=== PATIENT | female | born 1970 | race Caucasian/White ===

== ENCOUNTER 2024-12-03 05:38 | Emergency (ER) | payer OTHER, SELFPAY ==
[2024-12-03] VITALS (14 sets, daily range): BP systolic 130–158; BP diastolic 72–89; PULSE 77–90; TEMP 37; O2SAT 88–96; BMI 40.2
--- NOTE | 2024-12-03 05:57 | ECG_ITS ---
The [facility] Test Date: 2024-12-03 Pat Name: YVONNE KELLER Department: Room: - Gender: Female Call Specialist: : 1970 Requested By: NADIRA PEREZ Order Number: [id number] Reading MD: SONIA MUNGUIA Measurements Intervals [place] Rate: 78 P: 50 MN: 162 QRS: 5 QRSD: 92 T: 64 QT: 384 QTc: 417 Interpretive Statements 1100 Sinus rhythm 5211 Minimal voltage criteria for LVH, may be normal variant 9130 borderline ECG No previous ECG available for comparison Electronically Signed On 12-03-2024 16:59:39 EST by SONIA MUNGUIA
--- NOTE | 2024-12-03 06:03 | CT_ITS ---
The [address] [address] Patient Name: YVONNE KELLER MRN: [id number] date: 1970 Sex: F Assigned Patient Location: ER [facility] Accession/Order Number: [id number] Exam Date: 12/03/2024 06:35 Report Date: 12/03/2024 06:53 At the request of: WILMAN SOW Procedure: CT head/brain wo con EXAM: CT head/brain wo con HISTORY: Vertigo COMPARISON: None. TECHNIQUE: Axial soft tissue and bone windows through the calvarium with coronal and sagittal reformats. CT dose reduction technique was used including Automated Exposure Control. 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 Minimal left maxillary sinus mucosal thickening. The remainder of the paranasal sinuses and mastoid air cells are well aerated. No air-fluid levels. No extra-axial fluid collection. No intra-axial or extra-axial bleed. No mass effect or midline shift. The piña-white matter differentiation is preserved. The brain parenchymal volume is age appropriate. The ventricles are nondilated. The basal cisterns are patent. The craniovertebral junction is unremarkable. CT/CT head/brain wo con IMPRESSION: 1. No acute intracranial abnormality. Electronically authenticated by: ESTEBAN DAVILA Date: 12/03/2024 06:53
--- NOTE | 2024-12-03 06:07 | ED.GENADUL1 ---
HPI HPI - General Adult General Chief complaint: Dizziness Stated complaint: DIZZINESS Time Seen by Provider: 12/03/24 05:58 Source: patient Mode of arrival: walk-in Limitations: no limitations History of Present Illness HPI narrative: 54-year-old female presents for a spinning sensation. It has been intermittent and it started yesterday. She states she is getting over an upper respiratory infection. She states those symptoms are better but yesterday she developed a spinning sensation particularly when she stands up or moves around. She has not had a fever or vomiting and does not complain of ear pain. About 15 years ago she was treated for vertigo. Related Data Allergies Allergy/AdvReac Type Severity Reaction Status Date / Time Sulfa (Sulfonamide AdvReac Mild Vomiting Verified 12/03/24 05:42 Antibiotics) Opioid HPI Opioid Management Most Recent Opioid Data: No Data to Display Review of Systems ROS Narrative A ten point review of systems is negative except as noted above. PFSH PFSH Social History Little interest or pleasure in doing things: not at all Feeling down, depressed, or hopeless: not at all Exam Narrative Exam Narrative: Nurses note and vital signs reviewed and patient is not hypoxic. General: The patient appears well and in no apparent distress. Patient is resting comfortably on cart. Skin: Warm, dry, no pallor noted. There is no rash noted. Head: Normocephalic, atraumatic Eye: Normal conjunctiva, no drainage, EOMI. PERRL Ears, Nose, Mouth, and Throat: oral mucosa is moist. Nares patent. TMs and external canals are normal. No erythema or excess cerumen Cardiovascular: Regular Rate and Rhythm Respiratory: Patient is in no distress, no accessory muscle use, lungs are clear to auscultation, no wheezing, rales or rhonchi Back: non-tender GI: Soft and nontender Musculoskeletal: The patient has no evidence of calf tenderness, no pitting edema, symmetrical pulses noted bilaterally Neurological: A&O, normal speech; upper and lower extremity strength intact Psychiatric: Cooperative Constitutional Vital Signs, click to edit/add: Last Vital Signs Temp 98.6 F 12/03/24 05:42 Pulse 85 12/03/24 05:42 Resp 18 12/03/24 05:42 BP 158/75 H 12/03/24 05:42 Pulse Ox 96 12/03/24 05:42 O2 Del Method Room Air 12/03/24 05:42 Course Vital Signs Vital signs: Vital Signs Temperature 98.6 F 12/03/24 05:42 Pulse Rate 85 12/03/24 05:42 Respiratory Rate 18 12/03/24 05:42 Blood Pressure 158/75 H 12/03/24 05:42 Pulse Oximetry 96 12/03/24 05:42 Oxygen Delivery Method Room Air 12/03/24 05:42 Temperature 98.6 F 12/03/24 05:42 Pulse Rate 85 12/03/24 05:42 Respiratory Rate 18 12/03/24 05:42 Blood Pressure 158/75 H 12/03/24 05:42 Pulse Oximetry 96 12/03/24 05:42 Oxygen Delivery Method Room Air 12/03/24 05:42 Medical Decision Making MDM Narrative Medical decision making narrative: Tests are ordered and the patient is signed out to Dr. Smyth at change of shift. Differential Diagnosis Differential Diagnosis: Vertigo, dehydration, anemia, dysrhythmia Lab Data Lab results reviewed: Yes I reviewed the patient's lab results ECG Data Attestation: I personally reviewed and interpreted this ECG as follows: (EKG on my interpretation shows sinus rhythm with a rate of 78 and no acute change) Discharge Plan Discharge Patient Disposition: Still a Patient
[2024-12-03] MEDS: DIAZEPAM 10 MG/2 ML SYRINGE 2.5 MG IV (06:23)
--- NOTE | 2024-12-03 06:30 | PC.NURSE ---
SL started. 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 She is quite anxious. Lab in to draw. IV site has bruising at the insertion, but has blood return and flushes easily without swelling or pain.
[2024-12-03 06:42] LABS: Basophils Absolute Auto 0.1 10^3/uL (0.0-0.1); Eosinophils Absolute Auto 0.2 10^3/uL (0.0-0.7); Hematocrit 42.3 % (36.0-48.0); Immature Granulocytes Pct Auto 1.2 % (0.0-0.5); Lymphocytes Absolute Auto 1.8 10^3/uL (1.2-3.8); Mean Corpuscular HGB Conc 33.1 g/dL (29.9-35.2); Mean Corpuscular Hemoglobin 32.1 pg (26.7-34.0); Mean Platelet Volume 9.6 fL (9.5-13.5); Monocytes Absolute Auto 0.6 10^3/uL (0.3-0.8); Monocytes Percent Auto 7.3 % (1.7-12.0); Neutrophils Absolute Auto 5.4 10^3/uL (1.4-6.5); Neutrophils Percent Auto 66.5 % (43.0-75.0); Platelet Count 341 10^3/uL (150-450); Red Blood Count 4.36 10^6/uL (4.20-5.40); Red Cell Distribution Width 12.4 % (11.0-15.0); White Blood Count 8.2 10^3/uL (4.0-11.0)
--- NOTE | 2024-12-03 06:50 | PC.NURSE ---
returns from CT. Pt states that she is quite relaxed and would like to rest.
[2024-12-03 06:54] LABS: BUN Creatinine Ratio 20.5; Carbon Dioxide 29.3 mmol/L (21.0-32.0); Chloride 103 mmol/L (98-107); Estimated GFR (African America >60 (>=60 mL/min/1.73m^2); Estimated GFR (Non-African Ame >60 (>=60 mL/min/1.73m^2); Glucose 129 mg/dL (74-106); Potassium 4.3 mmol/L (3.5-5.1); Sodium 140 mmol/L (136-145)
== END 2024-12-03 08:06 | disposition home or self-care (01) ==
PROVIDERS: Emergency Medicine; Emergency Provider Student in an Organized Health Care Education/Training Program; PCP Family Medicine
DX: R42 Dizziness and giddiness (principal)
CPT/HCPCS: 36415; 70450; 80048; 85025; 93005; 96374; 99285; J3360